=== PATIENT | male | born 1960 | race Caucasian/White ===

== ENCOUNTER 2023-09-13 20:16 | Inpatient (IN) | payer SELFPAY ==
[2023-09-13 20:21] VITALS: BMI 29.8
[2023-09-13 21:15] LABS: BASO % 0.8 % (0-2.0); EOS % 2.3 % (0-4.5); HEMATOCRIT 45.5 % (35.4-49); HEMOGLOBIN 15.4 GM/dL (11.7-16.9); MCH 29.1 pg (25.7-33.7); MCHC 33.9 g/dl (32.0-35.9); MEAN CELL VOLUME 85.9 fl (80-96); MEAN PLT VOLUME 6.7 fl (7.5-11.1); MONO % 7.7 % (3.8-10.2); NEUT % 68.2 % (42.8-82.8); PLATELET COUNT 198 10^3/uL (134-434); WHITE BLOOD COUNT 7.1 K/mm3 (4.0-10.0)
[2023-09-13] MEDS: SODIUM CHLORIDE 0.9% 500 ML INFUS.BAG IV ONE (21:46)
[2023-09-13 21:50] LABS: LACTIC ACID 2.2 mmol/L (0.4-2.0)
[2023-09-13 22:16] LABS: ALBUMIN 3.5 g/dl (3.4-5.0); BILIRUBIN,TOTAL 0.3 mg/dL (0.2-1); BLOOD UREA NITROGEN 20.8 mg/dL (7-18); CALCIUM 8.7 mg/dL (8.5-10.1); POTASSIUM 4.3 mmol/L (3.5-5.1)
[2023-09-14] MEDS ORDERED: SODIUM CHLORIDE 1,000 ML IV SCH (01:00)
[2023-09-14 01:24] VITALS: RESP 18
[2023-09-14] MEDS: LACTATED RINGERS SOLUTION 1,000 ML/1,000 ML INFUS.BAG IV SCH (01:54)
[2023-09-14] MEDS: predniSONE 20 MG TABLET (UD) PO ONE (01:55)
[2023-09-14 07:26] LABS: HEMATOCRIT 40.7 % (35.4-49); HEMOGLOBIN 13.9 GM/dL (11.7-16.9); MCHC 34.1 g/dl (32.0-35.9); MEAN CELL VOLUME 84.8 fl (80-96); MEAN PLT VOLUME 7.4 fl (7.5-11.1); PLATELET COUNT 220 10^3/uL (134-434); RDW 13.2 % (11.9-15.9); WHITE BLOOD COUNT 5.9 K/mm3 (4.0-10.0)
[2023-09-14 08:04] LABS: ALBUMIN 3.3 g/dl (3.4-5.0); BLOOD UREA NITROGEN 15.4 mg/dL (7-18); CALCIUM 8.8 mg/dL (8.5-10.1)
[2023-09-14 08:08] LABS: CREATININE 0.9 mg/dL (0.55-1.3); PHOSPHOROUS 2.6 mg/dL (2.5-4.9)
[2023-09-14 08:09] LABS: BILIRUBIN,TOTAL 0.5 mg/dL (0.2-1); CHOLESTEROL 169 mg/dL (50-200); POTASSIUM 4.2 mmol/L (3.5-5.1); TOT PROT 6.5 g/dl (6.4-8.2)
[2023-09-14 08:10] LABS: LDL CHOLESTEROL (ONLY SJRH) 108 mg/dL (5-100)
[2023-09-14 08:13] LABS: HDL CHOLESTEROL 53 mg/dL (40-60)
[2023-09-14] MEDS ORDERED: predniSONE 20 MG TABLET (UD) PO SCH (10:00)
[2023-09-14 10:07] VITALS: BP 131/65; PULSE 82; TEMP 97.9
[2023-09-14] MEDS: ENOXAPARIN NA (PORCINE) 40 MG/0.4 ML DISP.SYRIN SQ SCH (11:59)
[2023-09-14] MEDS: BUDESONIDE/FORMETEROL FUMARATE 160/4.5 mcg INHALER IH SCH (12:21)
== END 2023-09-14 14:53 | disposition home or self-care (01) | DRG 204 ==
LOC: JER 20:16 → JERBED 22:38 → J4W 09-14 00:30 → OBSVTOIN 09-14 00:37
PROVIDERS: ADMIT Internal Medicine; ATTEND Internal Medicine
DX: R55 Syncope and collapse (principal); E86.0 Dehydration; E78.5 Hyperlipidemia, unspecified; E86.1 Hypovolemia
CPT/HCPCS: 0241U-QW; 36415; 70450-TC; 71045-TC-FY; 80053; 80061; 83036; 83605; 83735; 84100; 84443; 84484; 85025; 85027; 93005; 93010; 93306-TC; 99285-25; G0378